=== PATIENT | male | born 1970 | race American Indian/Alaskan Native ===

== ENCOUNTER 2022-04-07 08:00 | Inpatient (IN) | payer MEDICAID ==
[~2022-04-07 08:00] MED LIST: Cefepime 1 GM Vial IV ONE; Sodium Chloride 0.9% 100 ML AdvBag IV ONE
[2022-04-07] MEDS ORDERED: Warfarin 5 MG Tab PO ONE (15:51)
[2022-04-07] MEDS ORDERED: Cefepime 2 GM Vial IVPUSH ONE (15:55)
[2022-04-07] MEDS ORDERED: oxyCODONE ER 10 MG TAB.ER PO ONE (20:00)
[2022-04-07] MEDS ORDERED: Sodium Chloride 0.9% 100 ML IV ONE (20:50)
[2022-04-07] MEDS ORDERED: Cefepime 1 GM Vial IV ONE (20:50)
[2022-04-07] MEDS ORDERED: ALPRAZolam 0.25 MG Tab PO ONE (23:56)
[2022-04-08] MEDS ORDERED: oxyCODONE ER 10 MG TAB.ER PO ONE ×4 (02:00→20:00)
[2022-04-08] MEDS ORDERED: Sertraline 25 MG Tab PO ONE (08:00)
[2022-04-08] MEDS ORDERED: Lidocaine 5% 700 MG Patch TRDERM ONE (08:00)
[2022-04-08] MEDS ORDERED: Ferrous Sulfate 324 MG Tab.EC PO ONE (08:00)
[2022-04-08] MEDS ORDERED: Spironolactone 25 MG Tab PO ONE (08:00)
[2022-04-08] MEDS ORDERED: Amiodarone 200 MG Tab PO ONE (08:00)
[2022-04-08] MEDS ORDERED: Furosemide 40 MG Tab PO ONE (08:00)
[2022-04-08] MEDS ORDERED: Pantoprazole 40 MG Tab.CR PO ONE (08:00)
[2022-04-08] MEDS ORDERED: Gabapentin 100 MG Cap PO ONE ×3 (08:00→20:00)
[2022-04-08] MEDS ORDERED: Carvedilol 6.25 MG Tab PO ONE ×2 (08:00→17:30)
[2022-04-08] MEDS ORDERED: Sodium Chloride 0.9% 100 ML AdvBag IV ONE ×3 (08:15→19:30)
[2022-04-08] MEDS ORDERED: Cefepime 1 GM Vial IV ONE ×3 (08:15→19:30)
[2022-04-08] MEDS ORDERED: Warfarin 5 MG Tab PO ONE (12:00)
[2022-04-09] MEDS ORDERED: ALPRAZolam 0.25 MG Tab PO ONE (00:33)
[2022-04-09] MEDS ORDERED: oxyCODONE ER 10 MG TAB.ER PO ONE ×4 (02:00→20:00)
[2022-04-09] MEDS ORDERED: Sodium Chloride 0.9% 100 ML AdvBag IV ONE ×4 (02:30→19:35)
[2022-04-09] MEDS ORDERED: Cefepime 1 GM Vial IV ONE ×4 (02:30→19:35)
[2022-04-09] MEDS ORDERED: Pantoprazole 40 MG Tab.CR PO ONE (08:00)
[2022-04-09] MEDS ORDERED: Carvedilol 6.25 MG Tab PO ONE ×2 (08:00→17:30)
[2022-04-09] MEDS ORDERED: Spironolactone 25 MG Tab PO ONE (08:00)
[2022-04-09] MEDS ORDERED: Amiodarone 200 MG Tab PO ONE (08:00)
[2022-04-09] MEDS ORDERED: Lidocaine 5% 700 MG Patch TRDERM ONE (08:00)
[2022-04-09] MEDS ORDERED: Sertraline 25 MG Tab PO ONE (08:00)
[2022-04-09] MEDS ORDERED: Gabapentin 100 MG Cap PO ONE ×3 (08:00→20:00)
[2022-04-09] MEDS ORDERED: Ferrous Sulfate 324 MG Tab.EC PO ONE (08:00)
[2022-04-09] MEDS ORDERED: Furosemide 40 MG Tab PO ONE (08:00)
[2022-04-09] MEDS ORDERED: Warfarin 2.5 MG Tab PO ONE (12:00)
[2022-04-10] MEDS ORDERED: oxyCODONE ER 10 MG TAB.ER PO ONE ×3 (02:00→14:00)
[2022-04-10] MEDS ORDERED: Cefepime 1 GM Vial IV ONE ×4 (02:30→19:40)
[2022-04-10] MEDS ORDERED: Sodium Chloride 0.9% 100 ML AdvBag IV ONE ×4 (02:30→19:40)
[2022-04-10] MEDS ORDERED: Amiodarone 200 MG Tab PO ONE (08:00)
[2022-04-10] MEDS ORDERED: Pantoprazole 40 MG Tab.CR PO ONE (08:00)
[2022-04-10] MEDS ORDERED: Lidocaine 5% 700 MG Patch TRDERM ONE (08:00)
[2022-04-10] MEDS ORDERED: Carvedilol 6.25 MG Tab PO ONE ×2 (08:00→17:30)
[2022-04-10] MEDS ORDERED: Furosemide 40 MG Tab PO ONE (08:00)
[2022-04-10] MEDS ORDERED: Ferrous Sulfate 324 MG Tab.EC PO ONE (08:00)
[2022-04-10] MEDS ORDERED: Spironolactone 25 MG Tab PO ONE (08:00)
[2022-04-10] MEDS ORDERED: Sertraline 25 MG Tab PO ONE (08:00)
[2022-04-10] MEDS ORDERED: Warfarin 5 MG Tab PO ONE (12:00)
[2022-04-10] MEDS ORDERED: Gabapentin 100 MG Cap PO ONE ×2 (14:00→20:00)
[2022-04-10] MEDS ORDERED: oxyCODONE 5 MG Tab PO ONE (20:00)
[2022-04-11] MEDS ORDERED: Cefepime 1 GM Vial IV ONE ×4 (01:50→20:30)
[2022-04-11] MEDS ORDERED: Sodium Chloride 0.9% 100 ML AdvBag IV ONE ×4 (01:50→20:30)
[2022-04-11] MEDS ORDERED: ALPRAZolam 0.25 MG Tab PO ONE (01:50)
[2022-04-11] MEDS ORDERED: Gabapentin 100 MG Cap PO ONE ×3 (08:00→20:00)
[2022-04-11] MEDS ORDERED: Lidocaine 5% 700 MG Patch TRDERM ONE (08:00)
[2022-04-11] MEDS ORDERED: Sertraline 25 MG Tab PO ONE (08:00)
[2022-04-11] MEDS ORDERED: Pantoprazole 40 MG Tab.CR PO ONE (08:00)
[2022-04-11] MEDS ORDERED: Furosemide 40 MG Tab PO ONE (08:00)
[2022-04-11] MEDS ORDERED: Spironolactone 25 MG Tab PO ONE (08:00)
[2022-04-11] MEDS ORDERED: oxyCODONE ER 10 MG TAB.ER PO ONE ×2 (08:00→14:00)
[2022-04-11] MEDS ORDERED: Amiodarone 200 MG Tab PO ONE (08:00)
[2022-04-11] MEDS ORDERED: Ferrous Sulfate 324 MG Tab.EC PO ONE (08:00)
[2022-04-11] MEDS ORDERED: Carvedilol 6.25 MG Tab PO ONE ×2 (08:00→17:30)
[2022-04-11] MEDS ORDERED: Warfarin 5 MG Tab PO ONE (12:00)
[2022-04-11] MEDS ORDERED: oxyCODONE 5 MG Tab PO ONE (20:00)
== END 2022-04-13 16:48 | disposition home or self-care (01) | DRG 289 ==
LOC: CC.ZCENSUS 08:00
PROVIDERS: ADMIT Nurse Practitioner Family; ATTEND Nurse Practitioner Family
DX: I33.0 Acute and subacute infective endocarditis (principal); F11.20 Opioid dependence, uncomplicated; F15.20 Other stimulant dependence, uncomplicated; M46.26 Osteomyelitis of vertebra, lumbar region; M46.22 Osteomyelitis of vertebra, cervical region; I48.91 Unspecified atrial fibrillation; F12.20 Cannabis dependence, uncomplicated; Z20.822 Contact with and (suspected) exposure to COVID-19; Z79.01 Long term (current) use of anticoagulants; Z95.2 Presence of prosthetic heart valve; Z89.421 Acquired absence of other right toe(s)
CPT/HCPCS: 36415; 85610; A9270-GY; J0692